=== PATIENT | female | born 2000 | race African-American/Black ===

== ENCOUNTER 2024-10-19 09:19 | Emergency (ER) | payer BC ==
[2024-10-19] MEDS ORDERED: Acetaminophen 500 MG TAB ONE (10:40)
[2024-10-19] MEDS ORDERED: Methocarbamol 500 MG TAB ONE (10:41)
[2024-10-19] MEDS ORDERED: Lidocaine 4% Patch ONE (10:41)
== END 2024-10-19 10:50 | disposition home or self-care (01) ==
LOC: CSHERS 09:19
DX: S70.02XA Contusion of left hip, initial encounter (principal); F17.290 Nicotine dependence, other tobacco product, uncomplicated; W22.8XXA Striking against or struck by other objects, initial encounter
CPT/HCPCS: 99283